=== PATIENT | female | born 1995 | race Two or more races ===

== ENCOUNTER 2023-06-02 07:13 | Emergency (ER) | payer MEDICAID, OTHER ==
[~2023-06-02] VITALS: Ht 165.1 cm; Wt 62.1 kg
[2023-06-02] MEDS ORDERED: AMOX500T86 PO (08:41)
[2023-06-02] MEDS ORDERED: NAPR-746 PO (08:41)
[2023-06-02 08:45] VITALS: BP 102/62
== END 2023-06-02 08:48 | disposition home or self-care (01) ==
LOC: ER 07:13
DX: S81.832A Puncture wound without foreign body, left lower leg, initial encounter (principal); S81.831A Puncture wound without foreign body, right lower leg, initial encounter; W54.0XXA Bitten by dog, initial encounter; Y93.89 Activity, other specified; Y92.89 Other specified places as the place of occurrence of the external cause; Y99.8 Other external cause status